=== PATIENT | male | born 1955 | race Caucasian/White ===

== ENCOUNTER 2020-05-23 16:40 | Emergency (ER) | payer OTHER ==
[2020-05-23 17:00] VITALS: BP 150/90; TEMP 97.8
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
[2020-05-23 20:08] VITALS: PULSE 87
[2020-05-23 23:16] VITALS: RESP 18
== END 2020-05-23 20:07 | disposition home or self-care (01) ==
LOC: EC 16:40
DX: S05.12XA Contusion of eyeball and orbital tissues, left eye, initial encounter (principal); Z88.8 Allergy status to other drugs, medicaments and biological substances; F17.200 Nicotine dependence, unspecified, uncomplicated; Z96.641 Presence of right artificial hip joint; Y04.2XXA Assault by strike against or bumped into by another person, initial encounter
CPT/HCPCS: 70450; 99284